=== PATIENT | female | born 1945 | race Caucasian/White ===

== ENCOUNTER 2022-10-02 16:42 | Outpatient (CLI) | payer MEDICARE, OTHER, SELFPAY ==
--- NOTE | ~2022-10-02 | DEXA_ITS ---
Bone Density Report Name: REJI POLANCO Age: 77 Sex: Female Ethnicity: White Date of : 1945 Indication: postmenopausal; screening for osteoporosis; height loss; hysterectomy; Referring Provider: JATINDER, MANDEEP Ruby Study: Bone densitometry was performed. Exam Date: October 02, 2022 Accession number: [id number] Bone Density: Region BMD T-score Z-score Classification AP Spine(L1-L4) 1.388 3.1 5.6 Normal Femoral Neck (Left) 0.776 -0.7 1.5 Normal Total Hip (Left) 0.919 -0.2 1.7 Normal Femoral Neck (Right) 0.812 -0.3 1.8 Normal Total Hip (Right) 0.918 -0.2 1.7 Normal Total Hip Mean 0.919 -0.2 1.7 Normal World Health Organization criteria for BMD impression classify patients as: Normal (T-score at or above -1.0), Osteopenia (T-score between -1.0 and -2.5), or Osteoporosis (T-score at or below -2.5). 10-year Fracture Risk: FRAX not reported because: All T-scores for Spine Total, Hip Total, Femoral Neck at or above -1.0 Clinical Information Provided by Patient: Has used the following medications: Vitamin D Has the following medical conditions: Hysterectomy Patient maximum height was 65.5 Menopause Age: 47 No regular weight bearing exercise Does not regularly consume dairy products Drinks caffeinated beverages Onset of menses at age 12 Number of children 3 Impression: The patient has normal bone mass. Discussion: BONE DENSITY IS ABOVE THE MINIMUM DESIRABLE LEVEL AT ALL SKELETAL SITES TESTED. This patient?s bone mineral density is above the minimum desirable level (T-score -1.0 or better) at all sites measured. The patient should follow a healthful lifestyle (good nutrition with adequate calcium and vitamin D, and appropriate weight-bearing exercise). Follow-Up: Consider repeating this study in 5 years or sooner if there is some new clinical indication. Reported by: [facility] on 10/02/2022 5:07:00 PM. Reviewed, dictated and finalized at location [facility]
== END 2022-10-02 16:43 | disposition home or self-care (01) ==
PROVIDERS: PCP Internal Medicine; Visit Provider Internal Medicine
DX: Z78.0 Asymptomatic menopausal state (principal)
CPT/HCPCS: 77080

== ENCOUNTER 2023-03-27 | Emergency (ER) | payer MEDICARE, OTHER, SELFPAY ==
[2023-03-26 23:59] VITALS: BP 135/94; PULSE 82; RESP 20; TEMP 36.5; O2SAT 100
[2023-03-27] VITALS (15 sets, daily range): BP systolic 125–133; BP diastolic 65–73; PULSE 70–85; RESP 14–23; O2SAT 95–100
--- NOTE | ~2023-03-27 | CT_ITS ---
Noncontrast CT scan of the cervical spine Technique: Multiple contiguous axial [address] images of the cervical spine were obtained and rec onstructed in 2D sagittal and coronal planes on the acquisition scanner. Dose reduction technique was used on this scan by utilizing automated exposure control, adjustment of the mA and/or kV according to patient size. The dose-length product (DLP) was 260.42 mGy-cm. Clinical History: Pain Findings: No acute fracture seen. There is 3 mm anterolisthesis of C3 over C4. There is 2 mm anteroli sthesis of C4 over C5. There is advanced degenerative disc narrowing at C5-C6 and C6-C7. There is ext ensive facet arthropathy throughout the cervical spine. There is bilateral neural foraminal narrowing , left worse right, at C5-C6. There is bilateral neural foraminal narrowing at C6-C7. There are mild disc osteophyte complexes at C5-C6 and C6-C7. No prevertebral soft tissue swelling. Impression: No acute fracture. 3 mm anterolisthesis of C3 over C4. 2 mm anterolisthesis of C4 over C5. Degenerative spondylosis, as above. Reviewed, dictated and finalized at [facility]. [employer] Impression: No acute fracture. 3 mm anterolisthesis of C3 over C4. 2 mm anterolisthesis of C4 over C5. Degenerative spondylosis, as above.
--- NOTE | ~2023-03-27 | XR_ITS ---
Portable chest x-ray Comparison: None Clinical History: Syncope Findings: Lungs are clear, without focal consolidation or pleural effusion. Cardiomediastinal silho uette is unremarkable. Bones and soft tissues are unremarkable. Impression: Clear lungs. 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
--- NOTE | ~2023-03-27 | XR_ITS ---
Lumbosacral Spine: AP and lateral views Clinical History: Pain Findings: There is 22 degree levoscoliosis of the lumbar spine. There is 9 mm anterolisthesis of L5 o jose S1, with suspected bilateral L5 pars interarticularis defects. No fracture evident otherwise. The re is severe degenerative disc narrowing at L1-L2, L2-L3, and L5-S1. There is moderate degenerative d isc narrowing at L3-L4. There is severe facet arthropathy from L4 through S1. There are extensive ath erosclerotic calcifications of the aorta. The sacroiliac joints are normally outlined. Impression: Probable bilateral L5 pars interarticularis defects with 9 mm anterolisthesis of L5 over S1. 22 degrees levoscoliosis. Advanced degenerative spondylosis, as detailed above. Reviewed, dictated and finalized at [facility]. [employer] Impression: Probable bilateral L5 pars interarticularis defects with 9 mm anterolisthesis o f L5 over S1. 22 degrees levoscoliosis. Advanced degenerative spondylosis, as detailed above.
--- NOTE | ~2023-03-27 | CT_ITS ---
Non-contrast Head CT History: Syncope Technique: Axial non-contrast imaging of the brain was performed. Dose reduction technique was used on this scan by utilizing automated exposure control and iterative reconstruction technique. The dose -length product (DLP) was 605.33 mGy-cm. Findings: There is no evidence of intracranial hemorrhage, mass lesion, or acute infarct. Brain par enchyma appears normal. The ventricles and subarachnoid spaces are normal in size. The calvarium ap pears normal. The visualized paranasal sinuses and mastoid air cells are clear. Impression: No significant abnormality seen. Reviewed, dictated and finalized at location . [employer] Impression: No significant abnormality seen.
--- NOTE | ~2023-03-27 | CT_ITS ---
Noncontrast CT scan of the lumbar spine CLINICAL HISTORY: Back pain TECHNIQUE: Axial noncontrast imaging of the lumbar spine was performed. Sagittal and coronal reformat omayra images were constructed. Dose reduction technique was used on this scan by utilizing automated ex posure control and iterative reconstruction technique. The dose-length product (DLP) was 516.47 mGy-c m. FINDINGS: There is 24 degrees dextroscoliosis of lumbar spine. There are bilateral L5 pars interartic ularis defects, with 8 mm anterolisthesis of L5 over S1. At L1-L2, there is severe degenerative disc narrowing. There is moderate left facet arthropathy with minimal disc bulge. No spinal canal stenosis. There is severe left neural foraminal narrowing, and mo derate to severe right neural foraminal narrowing. At L2-L3, there is severe degenerative disc narrowing. There is mild facet arthropathy with minimal d isc bulge. No spinal canal stenosis. There is severe left neural foraminal narrowing. Right neural fo ramen preserved. At L3-L4, there is severe degenerative disc narrowing. There is mild facet arthropathy. There is mini mal disc bulge. No central canal stenosis. There is moderate to severe right neural foraminal narrowi ng, and moderate left neural foraminal narrowing. At L4-L5, there is severe bilateral facet arthropathy, with minimal disc bulge. No central canal sten osis. There is moderate left neural foraminal narrowing, and severe right neural foraminal narrowing. At L5-S1, there is moderate facet arthropathy. No central canal stenosis. There is severe bilateral n eural foraminal narrowing. Paravertebral soft tissues are unremarkable. Impression: No acute fracture. Bilateral L5 pars interarticularis defects, with 8 mm anterolisthesis of L5 over S1. 24 degree dextroscoliosis. Severe degenerative spondylosis, as above. Reviewed, dictated and finalized at location . [employer] PROFESSOR Impression: No acute fracture. Bilateral L5 pars interarticularis defects, with 8 mm anterolisthesis of L5 ove r S1. 24 degree dextroscoliosis. Severe degenerative spondylosis, as above.
--- NOTE | 2023-03-27 00:28 | ECG_ITS ---
Measurements Intervals [place] Rate: 72 P: 55 WV: 206 QRS: 41 QRSD: 79 T: 60 QT: 411 QTc: 452 Interpretive Statements SINUS RHYTHM BASELINE ARTIFACT- V1-V2 NORMAL ECG NO PREVIOUS ECG AVAILABLE FOR COMPARISON Electronically Signed On 03-27-2023 6:20:42 [employer] by Go Lou D.O.
[2023-03-27] MEDS: ONDANSETRON INJ 4 MG/2 ML VIAL IV PUSH (00:44)
[2023-03-27] MEDS: SODIUM CHLORIDE 0.9% IV 1,000 ML 999 ML IV CONT (00:44)
[2023-03-27 00:57] LABS: Basophils Percent Auto 0.2 % (0.2-1.2); Hematocrit 34.1 % (37.0-47.0); Immature Granulocyte Absolute 0.05 K/mm3 (0.00-0.031); Immature Granulocyte Percent A 0.4 % (0-0.5); Lymphocytes Absolute Auto 2.14 K/mm3 (0.9-3.2); Lymphocytes Percent Auto 16.9 % (18.3-44.2); Mean Corpuscular HGB Conc 32.3 g/dl (32-36); Mean Corpuscular Hemoglobin 30.3 pg (26-34); Mean Corpuscular Volume 93.9 fl (80-100); Monocytes Absolute Auto 0.8 K/mm3 (0.1-0.6); Neutrophils Absolute Auto 9.7 K/mm3 (1.3-6.7); Neutrophils Percent Auto 76.5 % (45.5-73.1); Platelet Count Result 219 k/mm3 (150-375); Red Blood Count 3.63 M/mm3 (4.2-5.4); Red Cell Distribution Width 13.2 % (11.5-14.5); White Blood Count 12.7 K/mm3 (4.5-10.0)
--- NOTE | 2023-03-27 01:10 | ED.GENADULT ---
HPI - General Adult General Chief complaint: Syncope Stated complaint: syncope Time Seen by Provider: 03/27/23 00:09 History of Present Illness HPI narrative: Patient 77-year-old female who presents emergency department with chief complaint of syncope. Patient reports that today she donated blood and was fairly active afterwards patient reports she got home and was multiple different things and did not get much rest. Patient states that she went to the bathroom had a bowel movement and while sitting on the toilet she started to feel as though she was going to pass out patient states that she fell to the floor struck her head she remembers striking her head on the floor but believes that she was unconscious. The patient states that she then laid on the tile floor and enjoyed being coolness of the tile the patient states that her family got her up and she felt lightheaded again and sat back down on the floor the family stated that they believe that she may have passed out again during that episode. Patient reports that she has a contusion on her scalp on the left area of the forehead the patient is not on blood thinners patient does report that her neck feels a little stiff afterwards patient also feels as though her lumbar region is sore the patient denies numbness or tingling in her lower extremities Related Data Allergies Allergy/AdvReac Type Severity Reaction Status Date / Time codeine Allergy Unknown Verified 03/27/23 00:11 penicillamine Allergy Unknown Verified 03/27/23 00:11 Sulfa (Sulfonamide Allergy Unknown Verified 03/27/23 00:11 Antibiotics) Review of Systems Review of Systems: A 10 system review of systems was completed on the patient and is negative except for what is stated in the HPI. Nursing and ancillary documentation was reviewed. Exam Narrative: GENERAL: Well-appearing, well-nourished, and in no acute distress. HEAD: Normocephalic, large contusion present to the left forehead. EYES: PERRLA and EOMI. ENT: Nares clear, no rhinorrhea or epistaxis. Mucous membranes moist. NECK: Supple. Mild tenderness to palpation in the midline cervical spine CHEST: Clear to auscultation. No respiratory distress. HEART: Regular rate and rhythm. No murmur heard. Normal peripheral pulses. ABDOMEN: Soft, nontender, nondistended, normal active bowel sounds. EXTREMITIES: Normal range of motion. No edema. Small bruise present to the left knee SKIN: Warm, dry, no rash. NEURO: No focal deficits. Alert and oriented x3. PSYCH: Normal mood and affect. Course Vital Signs Vital signs: Vital Signs Temperature 36.5 C 03/26/23 23:59 Pulse Rate 82 03/26/23 23:59 Respiratory Rate 20 03/26/23 23:59 Blood Pressure 135/94 H 03/26/23 23:59 Pulse Oximetry 100 03/26/23 23:59 Oxygen Delivery Room Air 03/26/23 23:59 Temperature 36.5 C 03/26/23 23:59 Pulse Rate 77 03/27/23 03:45 Respiratory Rate 18 03/27/23 03:45 Blood Pressure 126/73 03/27/23 00:45 Pulse Oximetry 98 03/27/23 03:45 Oxygen Delivery Room Air 03/27/23 00:06 Medical Decision Making MDM Narrative Medical decision making narrative: Differential diagnosis includes cardiogenic syncope, dehydration, vasovagal syncope, dysrhythmia, head injury, cervical spine fracture, intracranial hemorrhage, UTI, electrolyte abnormality Laboratory studies were obtained on the patient which showed normal CBC normal CMP troponin was negative urinalysis showed no evidence of UTI. CT head showed no evidence of acute intercranial hemorrhage, cervical spine CT showed no evidence of fracture lumbar spine plain film x-ray showed significant arthritis CT scan of the lumbar spine showed no evidence of fracture. Chest x-ray showed no pneumonia. Patient initially was nauseated and did feel somewhat lightheaded initially. After receiving antiemetics in the emergency department and observation the patient has had improvement in her symptoms and is cur
[2023-03-27 01:17] LABS: Prothrombin Time 13.2 Seconds (11.1-14.7)
[2023-03-27 01:18] LABS: Partial Thromboplastin Time 25.5 SECONDS (22.3-36.8)
[2023-03-27 01:36] LABS: Lactic Acid Reflex 1.4 mmol/L (0.7-2.0)
[2023-03-27] MEDS: METOCLOPRAMIDE HCL INJ 10 MG/2 ML VIAL IV PUSH (02:14)
[2023-03-27 02:19] LABS: Potassium 3.5 mmol/L (3.4-5.0)
[2023-03-27 03:13] LABS: Appearance Urine Clear (Clear); Bilirubin Urine Negative (Negative); Blood Urine Negative (Negative); Color Urine Yellow (Yellow); Glucose Urine UA Negative (Negative); Ketones Urine Negative (Negative); Leukocyte Esterase Ur Negative LEU/UL (Negative); Nitrate Urine Negative (Negative); Protein Urine Negative (Negative); Specific Grav Ur 1.019 (1.001-1.035); Urobilinogen Urine 0.2 mg/dL (<2.0); pH Urine 5.5 (5.0-9.0)
[2023-03-27 03:18] LABS: Add Urine Microscopic? NO
[2023-03-27 03:31] LABS: Alanine Aminotransferase 17 U/L (6-35); Alkaline Phosphatase 66 U/L (38-126); Anion Gap 9 mmol/L (8-16); Aspartate Amino Transferase 25 U/L (14-36); Bilirubin,Total 0.4 mg/dL (0.2-1.3); Blood Urea Nitrogen 21 mg/dL (7-17); Carbon Dioxide 24 mmol/L (22-30); Chloride 98 mmol/L (98-107); Estimated CRCL calculation 39 ml/min; Estimated Glomerular Filt Rate > 60; Glucose 117 mg/dL (65-110); Magnesium 1.8 mg/dL (1.6-2.3); Potassium 3.5 mmol/L (3.4-5.0); Sodium 131 mmol/L (137-145)
[2023-03-27 03:42] LABS: Troponin I < 0.012 ng/mL (0.000-0.034)
== END 2023-03-27 06:33 | disposition home or self-care (01) ==
PROVIDERS: Emergency Provider Emergency Medicine; PCP Internal Medicine
DX: S00.03XA Contusion of scalp, initial encounter (principal); S10.93XA Contusion of unspecified part of neck, initial encounter; S00.83XA Contusion of other part of head, initial encounter; R55 Syncope and collapse; W18.30XA Fall on same level, unspecified, initial encounter
CPT/HCPCS: 36415; 70450; 71045; 72100; 72125; 72131; 80053; 81003; 83605; 83735; 84132; 84484; 85025; 85610; 85730; 93005; 96361; 96374; 96375; 99284; J2405; J2765; J7030